=== PATIENT | male | born 1965 | race Two or more races ===

== ENCOUNTER 2023-11-20 11:18 | Emergency (ER) | payer OTHER ==
[2023-11-20 11:38] VITALS: BP 123/79; PULSE 80; RESP 18; TEMP 98.2; BMI 21.5
[2023-11-20] MEDS ORDERED: AMOX TR/POT CLAV 875MG/125MG TABLETS (FP) ONE (15:23)
[2023-11-20] MEDS: AMOX TR/POT CLAV 875MG/125MG TABLETS (FP) PO ONE (15:24)
== END 2023-11-20 16:09 | disposition home or self-care (01) ==
LOC: JERFT 11:18
DX: H60.92 Unspecified otitis externa, left ear (principal); H66.92 Otitis media, unspecified, left ear; H92.02 Otalgia, left ear
CPT/HCPCS: 70450-TC; 70486-TC; 99284-25